=== PATIENT | female | born 1940 | race Caucasian/White ===

== ENCOUNTER 2016-06-19 08:13 | Day surgery (SDC) | payer MEDICARE, OTHER ==
[~2016-06-19 08:13] MED LIST: ASPIRIN81 M1 PO; COREG6.25 M1 PO; LEXAPRO10 M2 PO; LIPITOR40 M1 PO; MOBIC7.5 M2 PO; NEURONTIN300 M1 PO; TRICOR145 M2 PO; TYLENOL WITH C1 EACH PO; TYLENOL325 M2 PO; VITAMIN D-32000 UNI3 PO; VITAMIN E400 UNI4 PO
== END 2016-06-19 14:35 ==
LOC: SHSC 08:13 → ORW 10:35 → PACU 11:10 → SHSC 12:40
PROC: 0HRLX74 Replacement of Left Lower Leg Skin with Autologous Tissue Substitute, Partial Thickness, External Approach (ICD-10-PCS; principal; 2016-06-19)
DX: S81.802A Unspecified open wound, left lower leg, initial encounter (principal); I25.2 Old myocardial infarction; I10 Essential (primary) hypertension; I25.10 Atherosclerotic heart disease of native coronary artery without angina pectoris; E78.5 Hyperlipidemia, unspecified; F32.9 Major depressive disorder, single episode, unspecified; Z87.891 Personal history of nicotine dependence; Z95.5 Presence of coronary angioplasty implant and graft; Z98.51 Tubal ligation status; Z90.49 Acquired absence of other specified parts of digestive tract; Z79.82 Long term (current) use of aspirin; Z79.899 Other long term (current) drug therapy; V09.9XXA Pedestrian injured in unspecified transport accident, initial encounter; Z98.890 Other specified postprocedural states
CPT/HCPCS: J0171; J1580; J3010; J3370; J7030